=== PATIENT | female | born 1975 | race Caucasian/White ===

== ENCOUNTER 2016-05-24 01:08 | Emergency (ER) | payer MEDICARE, MEDICAID ==
[2016-05-24] MEDS ORDERED: TRAMADOL 50 MG TAB ONE (03:59)
== END 2016-05-24 04:10 | disposition home or self-care (01) ==
LOC: ER 01:08
DX: M54.5 Low back pain (principal); B20 Human immunodeficiency virus [HIV] disease; I10 Essential (primary) hypertension; E11.9 Type 2 diabetes mellitus without complications; J45.909 Unspecified asthma, uncomplicated; Q96.9 Turner's syndrome, unspecified; M79.7 Fibromyalgia